=== PATIENT | female | born 1975 | race Caucasian/White ===

== ENCOUNTER 2019-10-08 21:20 | Emergency (ER) | payer MEDICAID ==
[2019-10-08 22:25] VITALS: BP 142/67; PULSE 102
[2019-10-08] MEDS ORDERED: Ketorolac 30 MG/ML SDV IM ONE (22:30)
--- NOTE | 2019-10-08 22:32 | EDM.PDOC ---
ED HPI GENERAL MEDICAL PROBLEM - General Chief Complaint: Genitourinary Problem Stated Complaint: R SIDE PAIN Time Seen by Provider: 10/08/19 22:11 Source of Information: Reports: Patient, Family, RN Notes Reviewed History Limitations: Reports: No Limitations - History of Present Illness INITIAL COMMENTS - FREE TEXT/NARRATIVE: 44-year-old female presents emergency department with a complaint of right flank pain, she states it becomes very intense and then relaxes starts in the middle of the back and radiates around the right flank. She has no history of nephrolithiasis however her family with father and brother have an extensive history she states the pain was so intense that it made her nauseated rates the pain 3 out of 10 at this time right side back pain Pain Score (Numeric/FACES): 7 - Related Data Allergies Allergy/AdvReac Type Severity Reaction Status Date / Time amoxicillin [Amoxicillin] Allergy Hives Verified 10/08/19 21:59 cefaclor [From Ceclor] Allergy Rash Verified 10/08/19 21:59 dextromethorphan HBr Allergy Hives Verified 10/08/19 21:59 [From Tylenol Cold Head Congestion] erythromycin base Allergy Cannot Verified 10/08/19 21:59 [Erythromycin Base] Remember hydroxychloroquine Allergy Hives Verified 10/08/19 21:59 [Hydroxychloroquine] phenylephrine HCl Allergy Cannot Verified 10/08/19 21:59 [From Tylenol Cold Head Remember Congestion] Sulfa (Sulfonamide Allergy Cannot Verified 10/08/19 21:59 Antibiotics) Remember Home Meds: Home Meds Desogestrel/Ethinyl Estradiol [Apri] 1 tab PO DAILY 12/30/12 [History] Naproxen Sodium [Aleve] 220 mg PO ASDIRECTED PRN 10/08/19 [History] sulfaSALAzine 1,000 mg PO DAILY 10/08/19 [History] sulfaSALAzine 500 mg PO BEDTIME 10/08/19 [History] Ketorolac [Toradol] 10 mg PO TID PRN #20 tab 10/09/19 [Rx] Past Medical History Musculoskeletal History: Reports: RA Social & Family History - Tobacco Use Smoking Status *Q: Never Smoker ED ROS GENERAL - Review of Systems Review Of Systems: See Below Constitutional: Denies: Fever, Chills Respiratory: Reports: No Symptoms Cardiovascular: Reports: No Symptoms GI/Abdominal: Reports: Abdominal Pain, Nausea. Denies: Vomiting ED EXAM, RENAL/ - Physical Exam Exam: See Below Exam Limited By: No Limitations General Appearance: Alert, WD/WN, No Apparent Distress Respiratory/Chest: No Respiratory Distress, Lungs Clear, Normal Breath Sounds, No Accessory Muscle Use, Chest Non-Tender Cardiovascular: Regular Rate, Rhythm, No Murmur GI/Abdominal: Soft, Tender (CVA area on the right side around to the right flank) Course - Vital Signs Last Recorded V/S: Last Vital Signs Temp 98.1 F 10/08/19 22:04 Pulse 102 H 10/08/19 22:24 Resp 16 10/08/19 22:04 BP 142/67 H 10/08/19 22:24 Pulse Ox 98 10/08/19 22:24 - Orders/Labs/Meds Labs: Laboratory Tests 10/08/19 Range/Units 22:17 Urine Color Yellow (YELLOW) Urine Appearance Clear (CLEAR) Urine pH 6.0 (5.0-8.0) Ur Specific [place] 1.020 (1.008-1.030) Urine Protein Negative (NEGATIVE) mg/dL Urine Glucose (UA) Negative (NEGATIVE) mg/dL Urine Ketones Negative (NEGATIVE) mg/dL Urine Occult Blood Large H (NEGATIVE) Urine Nitrite Negative (NEGATIVE) Urine Bilirubin Negative (NEGATIVE) Urine Urobilinogen 0.2 (0.2-1.0) EU/dL Ur Leukocyte Esterase Negative (NEGATIVE) Urine RBC 30-40 H (0-5) Urine WBC Not seen (0-5) Ur Epithelial Cells Many Urine Bacteria Few Meds: Medications Discontinued Medications Generic Name Dose Route Start Last Admin Trade Name Sachi PRN Reason Stop Dose Admin Ketorolac Tromethamine 30 mg 10/08/19 22:30 10/08/19 22:51 Toradol IM 10/08/19 22:31 30 mg ONETIME ONE Administration Departure - Departure Time of Disposition: 00:14 Disposition: Home, Self-Care 01 Condition: Good Clinical Impression: Kidney stone - Discharge Information Prescriptions: Ketorolac [Toradol] 10 mg PO TID PRN #20 tab PRN Reason: Pain Instructions: Kidney Stones, [id number] Referrals: Amanda Morton PA [Primary Care Provider] - Forms: ED Department Discharge Additional Instructions: Continue to push fluids, try and strain urine, use the ketorolac as needed for pain control do not take in combination with naproxen or any other NSAIDs, please followup with your primary care provider in 3-5 days if not better, please call return to the emergency department with worsening of symptoms. Sepsis Event Note (ED) - Evaluation Sepsis Screening Result: No Definite Risk - Focused Exam Vital Signs: Vital Signs Temp Pulse Resp BP Pulse Ox 10/08/19 22:24 102 H 142/67 H 98 10/08/19 22:21 78 197/89 H 10/08/19 22:04 98.1 F 92 16 173/81 H 93 L 10/08/19 21:40 98.1 F 92 16 173/81 H 93 L - Assessment/Plan Plan: Assessment Acuity = acute Site and laterality = right-sided nephrolithiasis 2 mm stone Etiology = unknown Manifestations = flank pain, nausea Location of injury = Home Lab values = CT scan describes stone above urinalysis reveals large amount of blood consistent with hematuria Plan Good relief with the Toradol provided in the ED prescription written for ketorolac 10 mg p.o. 3 times daily PRN total #20 follow-up primary care 3 to 5 days if not better This note was dictated using [employer] voice recognition software please call with any questions on syntax or grammar.
--- NOTE | 2019-10-09 00:08 | CRLCT ---
INDICATION: Right flank pain TECHNIQUE: CT abdomen and pelvis without contrast. COMPARISON: None FINDINGS: Lower chest: Unremarkable. Liver: Unremarkable. Spleen: Unremarkable. Pancreas: Unremarkable. Gallbladder and bile ducts: Unremarkable. Kidneys: 2 millimeter calculus distal right ureter with moderate hydronephrosis. Adrenal glands: Unremarkable. GI tract: Unremarkable. Vascular structures: Unremarkable. Lymph nodes: Unremarkable. Miscellaneous: Unremarkable. No free air or significant free fluid. Pelvic Organs: Unremarkable. Bones: Unremarkable for age. IMPRESSION: 2 millimeter calculus distal right ureter with mild right hydronephrosis. Dictated by Hermelindo Magallanes MD @ 10/09/2019 12:07:31 AM Please note that all CT scans at this facility use dose modulation, iterative reconstruction, and/or weight-based dosing when appropriate to reduce radiation dose to as low as reasonably achievable. Dictated by: Hermelindo Magallanes MD @ 10/09/2019 00:07:39 (Electronically Signed)
== END 2019-10-09 00:46 | disposition home or self-care (01) ==
LOC: JP.ED 21:20
DX: N13.2 Hydronephrosis with renal and ureteral calculous obstruction (principal); Z88.1 Allergy status to other antibiotic agents; Z88.8 Allergy status to other drugs, medicaments and biological substances; Z88.2 Allergy status to sulfonamides
CPT/HCPCS: 74176; 81001; 96372; 99284; J1885

== ENCOUNTER 2024-01-29 07:42 | Day surgery (SDC) | payer BC, OTHER ==
[~2024-01-29 07:42] MED LIST: Midazolam 1 MG/ML 2 ML SDV ONE; Propofol 200 MG/20 ML SDV ONE; fentaNYL 100 MCG/2 ML SDV ONE
[2024-01-29] MEDS: Lactated Ringers 1,000 ML IV SCH (08:51)
[2024-01-29 11:22] VITALS: BP 158/88; PULSE 98
== END 2024-01-29 11:23 | disposition home or self-care (01) ==
LOC: JP.SDS 07:42
PROVIDERS: ATTEND Surgery
DX: R10.9 Unspecified abdominal pain (principal); K63.89 Other specified diseases of intestine; K21.9 Gastro-esophageal reflux disease without esophagitis
CPT/HCPCS: 00811-QZ; 81025; 88305; J2250; J2704; J3010; J7120